=== PATIENT | female | born 1995 | race Two or more races ===

== ENCOUNTER 2019-08-01 19:56 | Observation (INO) | payer MEDICAID ==
[~2019-08-01] VITALS: Ht 157.5 cm; Wt 70.3 kg
== END 2019-08-01 21:20 | disposition home or self-care (01) | DRG 566 ==
LOC: EDBD 19:56 → LDRP 19:56
PROVIDERS: ADMIT Specialist; ATTEND Specialist
DX: O26.893 Other specified pregnancy related conditions, third trimester (principal); R35.0 Frequency of micturition; O99.89 Other specified diseases and conditions complicating pregnancy, childbirth and the puerperium; M54.9 Dorsalgia, unspecified; Z3A.30 30 weeks gestation of pregnancy
CPT/HCPCS: 59025; 81002; 84112; G0378

== ENCOUNTER 2019-09-13 14:23 | Observation (INO) | payer MEDICAID ==
[~2019-09-13] VITALS: Ht 157.5 cm; Wt 69.4 kg
[2019-09-13] MEDS ORDERED: SODIUM CHLORIDE 0.9% 1,000 ML IVB ONE (14:47)
[2019-09-13 15:02] LABS: Basophils # (auto) 0 10 ^3/uL (0-0.2); Basophils % (auto) 0.3 % (0.0-2.0); Eosinophils # (auto) 0.1 10 ^3/uL (0-0.8); Eosinophils % (auto) 1.3 % (0.0-7.0); Hematocrit 34.3 % (36.0-46.0); Hemoglobin 10.8 g/dL (12.2-16.2); Lymphocytes # (auto) 1.8 10 ^3/uL (0.4-5.4); Mean Corpuscular Hemoglobin 24.7 pg (28.0-32.0); Mean Corpuscular Hgb Conc. 31.3 g/dL (32.0-36.0); Mean Corpuscular Volume 78.7 fL (80.0-100.0); Monocytes # (auto) 0.5 10 ^3/uL (0-1.3); Monocytes % (auto) 5.6 % (0.0-12.0); Neutrophils # (auto) 6.2 10 ^3/uL (1.6-8.6); Neutrophils % (auto) 71.8 % (37.0-80.0); Nucleated Red Blood Cells % 0.1 %; Platelet Count (auto) 273 10^3/uL (140-450); Red Blood Cells 4.36 10^6/uL (4.0-5.20); Red Cell Distribution Width 14.7 % (11.8-14.3); White Blood Cell 8.6 10^3/uL (4.4-10.8)
[2019-09-13 15:23] LABS: Albumin 2.7 g/dL (3.4-5.0); BUN/Creatinine Ratio 10.4; Calcium 8.7 mg/dL (8.5-10.1); INR 0.95 (0.9-1.15); Partial Thromboplastin Time 24.9 sec (23.64-32.05)
[2019-09-13 15:26] LABS: Bilirubin, Total 0.2 mg/dL (0.2-1.0); Total Protein 6.9 g/dL (6.4-8.2)
[2019-09-13 16:44] VITALS: BP 117/66
[2019-09-13] MEDS ORDERED: PREN-96 PO (17:49)
[2019-09-13 18:00] LABS: Urine Bacteria NONE SEEN /hpf (None Seen); Urine Blood Negative /uL (Negative); Urine Specific Gravity 1.006 (1.001-1.035); Urine WBC 1 /hpf (0 - 5)
[2019-09-13] MEDS ORDERED: NIFEdipine 10 MG CAP PO ONE (18:00)
== END 2019-09-13 19:05 | disposition home or self-care (01) | DRG 566 ==
LOC: ER 14:23 → LDRP 17:20
PROVIDERS: ADMIT Obstetrics & Gynecology; ATTEND Obstetrics & Gynecology
DX: O99.343 Other mental disorders complicating pregnancy, third trimester (principal); D50.8 Other iron deficiency anemias; O62.9 Abnormality of forces of labor, unspecified; F41.9 Anxiety disorder, unspecified; Z3A.36 36 weeks gestation of pregnancy
CPT/HCPCS: 36415; 59025; 76818; 80053; 81001; 81002; 83735; 84443; 84484; 85025; 85610; 85730; G0378; J7030; 93005

== ENCOUNTER 2019-09-14 20:17 | Observation (INO) | payer MEDICAID ==
[~2019-09-14] VITALS: Ht 157.5 cm; Wt 69.9 kg
[~2019-09-14 20:17] MED LIST: PREN-96 PO
== END 2019-09-14 21:20 | disposition home or self-care (01) | DRG 566 ==
LOC: LDRP 20:17
PROVIDERS: ADMIT Obstetrics & Gynecology; ATTEND Obstetrics & Gynecology
DX: O34.63 Maternal care for abnormality of vagina, third trimester (principal); M54.5 Low back pain; Z3A.36 36 weeks gestation of pregnancy
CPT/HCPCS: 59025; 81002; G0378

== ENCOUNTER 2019-10-02 11:03 | Observation (INO) | payer MEDICAID | END 2019-10-02 12:10 | disposition home or self-care (01) | DRG 566 | LOC: LDRP 11:03 | PROVIDERS: ADMIT Obstetrics & Gynecology; ATTEND Obstetrics & Gynecology | DX: O36.5930 Maternal care for other known or suspected poor fetal growth, third trimester, not applicable or unspecified (principal); Z3A.38 38 weeks gestation of pregnancy | CPT/HCPCS: 76818; 81002; G0378 ==

== ENCOUNTER 2019-10-04 16:55 | Observation (INO) | payer MEDICAID | END 2019-10-04 17:53 | disposition home or self-care (01) | DRG 566 | LOC: LDRP 16:55 | PROVIDERS: ADMIT Specialist; ATTEND Specialist | DX: O62.9 Abnormality of forces of labor, unspecified (principal); O26.893 Other specified pregnancy related conditions, third trimester; M54.9 Dorsalgia, unspecified; N89.8 Other specified noninflammatory disorders of vagina; R11.2 Nausea with vomiting, unspecified; R51 Headache; O99.89 Other specified diseases and conditions complicating pregnancy, childbirth and the puerperium; Z3A.39 39 weeks gestation of pregnancy | CPT/HCPCS: 59025; 81002; G0378 ==

== ENCOUNTER 2019-10-06 16:07 | Observation (INO) | payer MEDICAID | END 2019-10-06 17:45 | disposition home or self-care (01) | DRG 566 | LOC: LDRP 16:07 | PROVIDERS: ADMIT Specialist; ATTEND Specialist | DX: O26.893 Other specified pregnancy related conditions, third trimester (principal); R10.9 Unspecified abdominal pain; R11.0 Nausea; Z3A.39 39 weeks gestation of pregnancy | CPT/HCPCS: 59025; 81002; G0378 ==

== ENCOUNTER 2019-10-08 13:26 | Observation (INO) | payer MEDICAID ==
[2019-10-08] MEDS ORDERED: LACTATED RINGER'S 1,000 ML IV ONE (14:15)
== END 2019-10-08 16:05 | disposition home or self-care (01) | DRG 566 ==
LOC: LDRP 13:26
PROVIDERS: ADMIT Specialist; ATTEND Specialist
DX: O21.8 Other vomiting complicating pregnancy (principal); H53.8 Other visual disturbances; R42 Dizziness and giddiness; R51 Headache; Z3A.39 39 weeks gestation of pregnancy
CPT/HCPCS: 59025; 81002; G0378; 96366

== ENCOUNTER 2019-10-10 00:10 | Inpatient (IN) | payer MEDICAID ==
[~2019-10-10] VITALS: Ht 157.5 cm; Wt 71.7 kg
[2019-10-10] MEDS ORDERED: LACT. RINGERS/OXYTOCIN 20UNITS 1,000 ML IV SCH ×2 (00:27→08:18)
[2019-10-10] MEDS ORDERED: LACTATED RINGER'S 1,000 ML IV SCH (00:27)
[2019-10-10] MEDS ORDERED: LIDOCAINE 2%HCL (LOCAL ANESTH.) INJ 20ML MDV ID ONE (00:30)
[2019-10-10] MEDS ORDERED: ACCU-CHEK COMFORT CURVE STRIP VI PRN (00:30)
[2019-10-10] MEDS ORDERED: NALBUPHINE HCL 10 MG/1ml INJECTION IV PRN (00:30)
[2019-10-10 01:22] LABS: Basophils # (auto) 0 10 ^3/uL (0-0.2); Basophils % (auto) 0.3 % (0.0-2.0); Eosinophils # (auto) 0.1 10 ^3/uL (0-0.8); Lymphocytes # (auto) 2.8 10 ^3/uL (0.4-5.4); Monocytes # (auto) 0.6 10 ^3/uL (0-1.3); Nucleated Red Blood Cells % 0.1 %; White Blood Cell 9.3 10^3/uL (4.4-10.8)
[2019-10-10 01:24] LABS: Eosinophils % (auto) 0.8 % (0.0-7.0); Hematocrit 32.4 % (36.0-46.0); Hemoglobin 10.4 g/dL (12.2-16.2); Lymphocytes % (auto) 29.6 % (10.0-50.0); Mean Corpuscular Hemoglobin 24.6 pg (28.0-32.0); Mean Corpuscular Volume 77.1 fL (80.0-100.0); Monocytes % (auto) 6.6 % (0.0-12.0); Neutrophils # (auto) 5.9 10 ^3/uL (1.6-8.6); Neutrophils % (auto) 62.7 % (37.0-80.0); Platelet Count (auto) 272 10^3/uL (140-450); Red Cell Distribution Width 14.7 % (11.8-14.3)
[2019-10-10 01:36] LABS: INR 0.93 (0.9-1.15); Partial Thromboplastin Time 24.4 sec (23.64-32.05)
[2019-10-10 01:39] LABS: Alcohol, Urine < 3.0 mg/dL (0-5); Amphetamine Screen, Urine NEGATIVE (NEGATIVE); Barbiturate Scree,Urine NEGATIVE (NEGATIVE); Benzodiazephine Screen, Urine NEGATIVE (NEGATIVE); Cannabinoid Screen, Urine NEGATIVE (NEGATIVE); Cocaine Screen, Urine NEGATIVE (NEGATIVE); Opiate Scree,Urine NEGATIVE (NEGATIVE); Phencyclidine Screen, Urine NEGATIVE (NEGATIVE)
[2019-10-10 01:40] LABS: Albumin 2.7 g/dL (3.4-5.0); BUN/Creatinine Ratio 11.8; Calcium 8.7 mg/dL (8.5-10.1); Potassium 3.8 mmol/L (3.5-5.1)
[2019-10-10 01:42] LABS: Urine Bacteria FEW /hpf (None Seen); Urine Blood Negative /uL (Negative); Urine Mucus FEW (None Seen); Urine Specific Gravity 1.029 (1.001-1.035); Urine WBC 98 /hpf (0 - 5)
[2019-10-10 01:43] LABS: Bilirubin, Total 0.2 mg/dL (0.2-1.0); Total Protein 6.9 g/dL (6.4-8.2)
[2019-10-10] MEDS ORDERED: miSOPROStol 50 MCG per PRE-CUT 1/2 TAB PO PRN (02:00)
[2019-10-10] MEDS: WITCH HAZEL-GLYCERIN PAD TOP PRN ×2 (05:26→11:21)
[2019-10-10] MEDS: PHISODERM TOP SOLN 240ML BTL TOP PRN ×2 (05:27→11:21)
[2019-10-10] MEDS: DERMOPLAST 60ML BOTTLE TOP PRN ×2 (05:27→11:21)
[2019-10-10] MEDS ORDERED: ePHEDrine SULFATE 50 MG/ML AMP IV ONE (07:00)
[2019-10-10] MEDS ORDERED: fentaNYL 200mCg/100ml W ROPIVA 100 ML EPI SCH (07:00)
[2019-10-10] MEDS ORDERED: TERBUTALINE SULFATE 1 MG/ML 1ML VIAL SC ONE (08:30)
[2019-10-10] MEDS ORDERED: METHYLERGONOVINE MALEATE 0.2 MG/ML AMP IM ONE ×2 (09:47→11:35)
[2019-10-10] MEDS ORDERED: ONDANSETRON HCL 4 MG/2 ML VIAL IV PRN ×2 (12:00)
[2019-10-10] MEDS ORDERED: ACETAMINOPHEN 325 MG TAB PO PRN (12:00)
[2019-10-10 14:55] VITALS: BP 104/56
[2019-10-10 19:00] VITALS: BP 110/57
[2019-10-10] MEDS: IBUPROFEN 600 MG TAB PO PRN ×2 (19:10→22:47)
[2019-10-10 22:57] VITALS: BP 103/58
[2019-10-11 02:55] VITALS: BP 105/55
[2019-10-11 05:09] LABS: RPR Non Reactive (Non Reactive)
[2019-10-11 07:30] VITALS: BP 99/55
[2019-10-11] MEDS: IBUPROFEN 600 MG TAB PO PRN (09:03)
[2019-10-11 11:00] VITALS: BP 109/68
[2019-10-11] MEDS: DERMOPLAST 60ML BOTTLE TOP PRN (12:54)
[2019-10-11] MEDS: WITCH HAZEL-GLYCERIN PAD TOP PRN (12:54)
== END 2019-10-11 13:00 | disposition home or self-care (01) | DRG 560 ==
LOC: LDRP 00:10
PROVIDERS: ADMIT Obstetrics & Gynecology; ATTEND Obstetrics & Gynecology
PROC: 10E0XZZ Delivery of Products of Conception, External Approach (ICD-10-PCS; principal; 2019-10-10)
PROC: 0HQ9XZZ Repair Perineum Skin, External Approach (ICD-10-PCS; 2019-10-10)
DX: O70.0 First degree perineal laceration during delivery (principal); O99.345 Other mental disorders complicating the puerperium; F53.0 Postpartum depression; Z3A.40 40 weeks gestation of pregnancy; Z91.018 Allergy to other foods; Z37.0 Single live birth
CPT/HCPCS: 36415; 51702; 59025; 59409; 62282; 80053; 80307; 81001; 81002; 84112; 85025; 85610; 85730; 86592; 86850; 86900; 86901; 94762; 96372; G0378; J2405; J2590

== ENCOUNTER 2020-03-22 12:23 | Emergency (ER) | payer MEDICAID ==
[~2020-03-22] VITALS: Ht 157.5 cm; Wt 63.5 kg
[2020-03-22 12:42] VITALS: BP 126/74
== END 2020-03-22 12:56 | disposition home or self-care (01) ==
LOC: ER 12:23
DX: U07.1 COVID-19 (principal); F41.9 Anxiety disorder, unspecified